=== PATIENT | male | born 1970 | race Caucasian/White ===

== ENCOUNTER 2020-10-28 22:47 | Emergency (ER) | payer MEDICAID ==
[~2020-10-28] VITALS: Ht 170.2 cm; Wt 86.4 kg
[2020-10-28 22:49] VITALS: BP 123/91
--- NOTE | 2020-10-29 04:39 | NUR ---
Pt left without being seen by provider. MD Morales aware. Pt departed in no acute distress. Refused discharge vital signs, states "I'm getting the fuck out of here."
== END 2020-10-29 04:40 | disposition left against medical advice (07) ==
LOC: ER 22:48
DX: M25.512 Pain in left shoulder (principal); R07.89 Other chest pain; Z53.21 Procedure and treatment not carried out due to patient leaving prior to being seen by health care provider
CPT/HCPCS: 93005

== ENCOUNTER 2020-11-08 01:52 | Emergency (ER) | payer MEDICAID ==
[~2020-11-08] VITALS: Ht 170.2 cm; Wt 86.0 kg
[2020-11-08 02:39] LABS: BASOPHILS # (AUTO) 0.1 X10'3 (0-0.2); BASOPHILS % (AUTO) 0.7 % (0-1); EOSINOPHILS # (AUTO) 0.2 X10'3 (0-0.9); EOSINOPHILS % (AUTO) 1.8 % (0-6); HEMATOCRIT 44.4 % (42.0-52.0); LYMPHOCYTES # (AUTO) 2.2 X10'3 (1.1-4.8); LYMPHOCYTES % (AUTO) 23.8 % (21-51); MEAN CORPUSCULAR HEMOGLOBIN 30.6 PG (27.0-31.0); MEAN CORPUSCULAR HGB CONC 33.7 g/dL (33.0-36.5); MEAN CORPUSCULAR VOLUME 90.7 FL (78-98); MEAN PLATELET VOLUME 8.5 FL (7.4-10.4); MONOCYTES # (AUTO) 0.8 X10'3 (0-0.9); MONOCYTES % (AUTO) 8.3 % (2-12); NEUTROPHILS % (AUTO) 65.4 % (42-75); PLATELET COUNT 195 X10'3 (140-440); WHITE BLOOD COUNT 9.2 X10'3 (4.5-11.0)
[2020-11-08 02:44] LABS: ALANINE AMINOTRANSFERASE 174 U/L (12-78); ALBUMIN 3.8 G/DL (3.4-5.0); ALBUMIN/GLOBULIN RATIO 1.2 (1.1-1.5); ALKALINE PHOSPHATASE 80 IU/L (46-116); ANION GAP 10 (8-16); ASPARTATE AMINO TRANSFERASE 108 U/L (10-37); BILIRUBIN,TOTAL 0.5 MG/DL (0.1-1.0); BLOOD UREA NITROGEN 18 MG/DL (7-18); BUN/CREATININE RATIO 18.8 (5.4-32.0); CALCIUM 8.9 MG/DL (8.5-10.1); CHLORIDE 104 MMOL/L (99-107); CREATININE 0.96 MG/DL (0.60-1.10); GLUCOSE 102 MG/DL (70-104); POTASSIUM 3.7 MMOL/L (3.5-5.1); SODIUM 141 MMOL/L (135-145); TOTAL CARBON DIOXIDE 26.6 MMOL/L (24-32); TOTAL PROTEIN 7.1 G/DL (6.4-8.2); eGFR 82 ML/MIN
[2020-11-08] MEDS ORDERED: NO HOME MEDS (02:47)
[2020-11-08 03:05] LABS: ETHANOL < 0.010 GM/DL (0.0-0.010)
[2020-11-08 03:08] LABS: URINE AMPHETAMINE SCREEN POSITIVE (Neg); URINE BARBITUATE SCREEN NEGATIVE (Neg); URINE BENZODIAZEPINES SCREEN NEGATIVE (Neg); URINE CANNABINOID SCREEN POSITIVE (Neg); URINE COCAINE SCREEN NEGATIVE (Neg); URINE METHADONE SCREEN NEGATIVE (Neg); URINE OPIATE SCREEN NEGATIVE (Neg); URINE PHENCYCLIDINE SCREEN NEGATIVE (Neg)
[2020-11-08 05:40] VITALS: BP 157/83
--- NOTE | 2020-11-08 06:23 | NUR ---
was told packet faxed will call [facility] once open.
--- NOTE | 2020-11-08 07:41 | NUR ---
confirmed [facility] got packet. Radha stated shes working on his packet now. pt in bed no distress noted.
--- NOTE | 2020-11-08 10:28 | NUR ---
pt alert in bed no distress noted.
--- NOTE | 2020-11-08 12:07 | NUR ---
pt being evaluated by [facility]
== END 2020-11-08 12:42 | disposition home or self-care (01) ==
LOC: ER 01:53
DX: R45.851 Suicidal ideations (principal); Z20.822 Contact with and (suspected) exposure to COVID-19; R74.01 Elevation of levels of liver transaminase levels; F15.10 Other stimulant abuse, uncomplicated; R07.89 Other chest pain; F12.90 Cannabis use, unspecified, uncomplicated; F17.200 Nicotine dependence, unspecified, uncomplicated; Z59.0 Homelessness; Z79.899 Other long term (current) drug therapy
CPT/HCPCS: 36415; 80053; 80305; 80320; 85025; 87426; 93005; 99285

== ENCOUNTER 2020-11-13 11:20 | Emergency (ER) | payer MEDICAID ==
[~2020-11-13] VITALS: Ht 170.2 cm; Wt 86.4 kg
[~2020-11-13 11:20] MED LIST: NO HOME MEDS
[2020-11-13] MEDS ORDERED: haloperidol lactate 5mg/ml inj IM ONE (11:35)
[2020-11-13] MEDS ORDERED: LORazepam 2 mg/ml vial IM ONE (11:35)
[2020-11-13] MEDS ORDERED: diphenhydrAMINE 25mg capsule PO ONE (11:35)
[2020-11-13 12:10] LABS: BASOPHILS # (AUTO) 0.1 X10'3 (0-0.2); BASOPHILS % (AUTO) 0.8 % (0-1); EOSINOPHILS # (AUTO) 0.4 X10'3 (0-0.9); EOSINOPHILS % (AUTO) 4.3 % (0-6); HEMATOCRIT 47.7 % (42.0-52.0); HEMOGLOBIN 16.1 g/dl (14.0-17.9); LYMPHOCYTES % (AUTO) 23.5 % (21-51); MEAN CORPUSCULAR HEMOGLOBIN 30.8 PG (27.0-31.0); MEAN CORPUSCULAR HGB CONC 33.7 g/dL (33.0-36.5); MEAN CORPUSCULAR VOLUME 91.4 FL (78-98); MEAN PLATELET VOLUME 9.2 FL (7.4-10.4); MONOCYTES # (AUTO) 0.8 X10'3 (0-0.9); MONOCYTES % (AUTO) 9.7 % (2-12); NEUTROPHILS # (AUTO) 5.2 X10'3 (1.8-7.7); NEUTROPHILS % (AUTO) 61.7 % (42-75); PLATELET COUNT 207 X10'3 (140-440); RED BLOOD COUNT 5.22 X10'6 (4.70-6.10); RED CELL DISTRIBUTION WIDTH 13.7 % (11.5-14.5); WHITE BLOOD COUNT 8.4 X10'3 (4.5-11.0)
[2020-11-13 12:26] LABS: ALANINE AMINOTRANSFERASE 114 U/L (12-78); ALBUMIN 3.7 G/DL (3.4-5.0); ALKALINE PHOSPHATASE 84 IU/L (46-116); ANION GAP 11 (8-16); ASPARTATE AMINO TRANSFERASE 57 U/L (10-37); BILIRUBIN,TOTAL 0.9 MG/DL (0.1-1.0); BLOOD UREA NITROGEN 19 MG/DL (7-18); BUN/CREATININE RATIO 16.1 (5.4-32.0); CALCIUM 8.9 MG/DL (8.5-10.1); CHLORIDE 103 MMOL/L (99-107); CREATININE 1.18 MG/DL (0.60-1.10); GLUCOSE 164 MG/DL (70-104); POTASSIUM 3.8 MMOL/L (3.5-5.1); SODIUM 138 MMOL/L (135-145); TOTAL PROTEIN 7.3 G/DL (6.4-8.2); eGFR 65 ML/MIN
[2020-11-13 12:37] LABS: ETHANOL < 0.010 GM/DL (0.0-0.010)
--- NOTE | 2020-11-13 13:01 | NUR ---
pt is supine in bed, asleep, regular breathing present, no needs at this time
--- NOTE | 2020-11-13 14:00 | NUR ---
Dr Sierra came to see pt, pt is too asleep
--- NOTE | 2020-11-13 15:00 | NUR ---
pt is supine in bed, quietly snoring, no needs at this time
--- NOTE | 2020-11-13 15:55 | NUR ---
pt is sleeping, no needs at this time
--- NOTE | 2020-11-13 17:00 | NUR ---
Angelic singh in [facility] - 11/13/20 at 1715 by COLLETTE PT KONRAD
--- NOTE | 2020-11-13 17:00 | NUR ---
PT SLEEPING SUPINE, NO NEEDS AT THIS TIME.
--- NOTE | 2020-11-13 17:19 | NUR ---
RELIEVED PRIMARY NURSE FOR A 15 MIN BREAK THE PATIENT WAS ASLEEP LAYING ON HIS LEFT SIDE, RESPIRATIONS APPEAR NORMAL AND THE PATIENT IS NOT ANY DISTRESS AT THIS TIME.
--- NOTE | 2020-11-13 17:46 | NUR ---
PT SLEEPING ON LEFT SIDE.
--- NOTE | 2020-11-13 18:51 | NUR ---
Patient awakened and ate his dinner. He presents as cooperative however irritable and minimal. He did provide a urine sample. He admits to using methamphetamine.
[2020-11-13 18:56] LABS: URINE AMPHETAMINE SCREEN POSITIVE (Neg); URINE BARBITUATE SCREEN NEGATIVE (Neg); URINE BENZODIAZEPINES SCREEN NEGATIVE (Neg); URINE CANNABINOID SCREEN POSITIVE (Neg); URINE COCAINE SCREEN NEGATIVE (Neg); URINE METHADONE SCREEN NEGATIVE (Neg); URINE OPIATE SCREEN NEGATIVE (Neg); URINE PHENCYCLIDINE SCREEN NEGATIVE (Neg)
--- NOTE | 2020-11-13 19:04 | NUR ---
The patient appears to be back asleep
--- NOTE | 2020-11-13 19:07 | NUR ---
PACKET FAXED TO [facility]
--- NOTE | 2020-11-13 20:18 | NUR ---
The patient appears to be sleeping
--- NOTE | 2020-11-13 20:59 | NUR ---
The patient appears to be sleeping
--- NOTE | 2020-11-14 00:17 | NUR ---
The patient appears to be asleep
--- NOTE | 2020-11-14 01:05 | NUR ---
THe patient appears to be sleeping
--- NOTE | 2020-11-14 02:49 | NUR ---
The patient appears to be sleeping
--- NOTE | 2020-11-14 04:37 | NUR ---
The patient appears to be sleeping
--- NOTE | 2020-11-14 07:00 | NUR ---
Received pt sleeping in no apparent distress.
--- NOTE | 2020-11-14 09:00 | NUR ---
Pt awoke at 0825 and went to the bathroom. Pt then came to nurse's station and was being rude and threatening. Pt c/o being placed in a bed next to another pt. RN set limits with pt rudeness but offered compassion for his uncomfort. Pt eventually calmed down and was appreciative of care. Pt bed moved to a quieter location and pt seems to have fallen asleep.
--- NOTE | 2020-11-14 11:00 | NUR ---
Pt continues to sleep in bed without signs of distress.
--- NOTE | 2020-11-14 13:00 | NUR ---
Pt continues lying in bed appearing to sleep. Pt peaceful, in no apparent distress.
--- NOTE | 2020-11-14 15:00 | NUR ---
pt remains laying calmly and peacefully in bed, apparently sleeping.
--- NOTE | 2020-11-14 17:00 | NUR ---
Pt continues to appear to be sleeping in no apparent distress.
--- NOTE | 2020-11-14 18:30 | NUR ---
PT SLEEPING COMFORTABLY IN BED AT THIS TIME, COMPLIANT WITH STAFF.
--- NOTE | 2020-11-14 19:30 | NUR ---
PT COMPLIANT WITH STAFF, PT EATING DINNER AT THIS TIME, PT STATES HE "WANTS TO BE LEFT ALONE."
--- NOTE | 2020-11-14 20:15 | NUR ---
PT RESTING COMFORTABLY IN BED FOLLOWING EATING SUPPER, PT COMPLIANT WITH NURSING STAFF.
--- NOTE | 2020-11-14 21:41 | NUR ---
PT SLEEPING IN BED IN NO SIGNS OF DISTRESS.
--- NOTE | 2020-11-14 23:41 | NUR ---
Pt sleeping comfortably in no signs of distress at this time.
--- NOTE | 2020-11-15 01:20 | NUR ---
pt continues to sleep comfortably in bed at this time in no distress.
--- NOTE | 2020-11-15 02:35 | NUR ---
Pt in no sign of distress sleeping comfortably in bed at this time.
--- NOTE | 2020-11-15 04:00 | NUR ---
Pt continues to sleep comfortably in bed in no sign of distress.
--- NOTE | 2020-11-15 05:28 | NUR ---
Pt sleeping in bed comfortably post vital signs.
--- NOTE | 2020-11-15 08:38 | NUR ---
Pt up to the bathroom and returned to bed and appears to have fallen back to sleep without signs of distress.
--- NOTE | 2020-11-15 09:00 | NUR ---
Pt did not awake for breakfast, but admitting was able to wake him and get him to sign papers. Pt was a little bothered, but eventually cooperative.
--- NOTE | 2020-11-15 11:00 | NUR ---
Pt continues to sleep peacefully without signs of distress.
--- NOTE | 2020-11-15 13:00 | NUR ---
Pt remains sleeping in bed and has not awoken yet to eat his lunch which is on his bedside table.
--- NOTE | 2020-11-15 15:00 | NUR ---
Pt laying in bed sleeping without signs of distress.
--- NOTE | 2020-11-15 17:13 | NUR ---
relieving RN for break, pt is resting quietly on gurney, calm and cooperative
[2020-11-15 17:46] VITALS: BP 129/80
--- NOTE | 2020-11-15 18:37 | NUR ---
The patient has been verbally abusive to staff over the past 24 hours. Requested [facility] come and re-evaluate his 5150 hold status.
--- NOTE | 2020-11-15 19:34 | NUR ---
The patient is resting quietly on his bed.
--- NOTE | 2020-11-15 20:08 | NUR ---
The patient is rude, condensending and swearing at staff. "all you have to do is flare me up!" He is using foul language.
--- NOTE | 2020-11-15 20:13 | NUR ---
The patient is rude and attempting to intimidate female staff. "You should have given me sleeping pills when I asked"
--- NOTE | 2020-11-15 20:20 | NUR ---
The patient is threatening us that if we come over towards his bed he will "unload on you!"
--- NOTE | 2020-11-15 20:33 | NUR ---
Patient stating if he is released if will try to harm someone "any one who gets in my way" The patient presents as antisocial. He is homeless and does not want to be released and trying to hold staff hostage.
--- NOTE | 2020-11-15 20:46 | NUR ---
patient quiet at this time
--- NOTE | 2020-11-15 21:42 | NUR ---
The patient appears to be sleeping at this time.
--- NOTE | 2020-11-15 23:55 | NUR ---
The patient appears to be sleeping
--- NOTE | 2020-11-16 01:43 | NUR ---
The patient appears to be sleeping
--- NOTE | 2020-11-16 03:11 | NUR ---
The patient appears to be sleeping
--- NOTE | 2020-11-16 04:39 | NUR ---
The patient appears to be sleeping
--- NOTE | 2020-11-16 06:40 | NUR ---
Pt resting with eyes closed, effortless respirations observed.
--- NOTE | 2020-11-16 08:25 | NUR ---
Pt has been up and ambulated to restroom, ate breakfast tray and returned completed tray to tray cart. Pt remains calm and cooperative.
--- NOTE | 2020-11-16 09:05 | NUR ---
[facility] for [facility]uation.
--- NOTE | 2020-11-16 09:10 | NUR ---
Pt yelling and arguing with [facility] worker Huey. Pt becomes aggitated when asked any questions and comes back with argument "if you guys would just do your job". Security nearby for assist if needed as pt escalates easily.
--- NOTE | 2020-11-16 09:30 | NUR ---
Pt stated to [facility] worker he would not be suicidal if he could get back to [place]. [facility] worker going to attempt to contact pt contacts of phone numbers given by pt to them and seek safety plan for discharge.
--- NOTE | 2020-11-16 12:52 | NUR ---
relieving RN for break, pt is resting quietly on gurney, calm and cooperative
--- NOTE | 2020-11-16 14:37 | NUR ---
Pt was seen by Dr. Morales. Shortly after leaving pt states he just want to go. Pt states "just let me go, I can get things done faster and better than here." Pt goes on stating "I'm not going to hurt myself or anyone, I just need to get out of here as this isn't working". MD Morales updated as well as [facility] work Huey, pt being dc'd and cab being called to take pt to [facility] per pt request5
--- NOTE | 2020-11-16 14:48 | NUR ---
Pt DC paper and list of resources from [facility] reviewed and given to pt. Cab called and to be here in 20-35min and will be taking pt to [facility]. Pt escorted out to lobby by security per hospital policy after receiving belongings and getting dressed.
== END 2020-11-16 14:54 | disposition home or self-care (01) ==
LOC: ER 11:20
DX: F20.0 Paranoid schizophrenia (principal); F15.90 Other stimulant use, unspecified, uncomplicated; Z91.19 Patient's noncompliance with other medical treatment and regimen
CPT/HCPCS: 36415; 80053; 80305; 80320; 84443; 85025; 96372; 99285; J1630; J2060; Q0163